=== PATIENT | male | born 1960 | race Caucasian/White ===

== ENCOUNTER 2017-12-11 21:36 | Emergency (ER) | payer BC ==
--- NOTE | 2017-12-11 21:58 | Emergency Department Record ---
History of Present Illness - General Chief Complaint: Abdominal Pain Stated Complaint: ABD PAIN Time Seen by Provider: 12/11/17 21:40 Source: Patient Mode of Arrival: Ambulatory Limitations: No limitations - History of Present Illness Initial Comments: 57 yo male presents to ED for evaluation of intermittent left sided flank pain for the past 2 days. Patient reports that his pain symptoms range from sever to very mild, denies dysuria or change in stools, denies nausea/vomiting, and denies recent fevers/chills/illness. Patient denies trauma to the area or injury. Patient reports taking ibuprofen for his pain symptoms which improves but then returns when the NSAID wears off. Patient denies previous surgery other than appendectomy. MD Complaint: Abdominal pain Onset/Timin -: Days(s) Location: LLQ Migration to: L Flank Severity: Moderate Quality: Sharp, Stabbing Consistency: Constant, Getting worse Improves With: Nothing Worsens With: Nothing - Related Data Home Medications Medication Instructions Recorded Confirmed Last Taken Atorvastatin Calcium [Atorvastatin 20 mg PO DAILY 12/11/17 12/11/17 Unknown Calcium] Allergies Allergy/AdvReac Type Severity Reaction Status Date / Time amoxicillin trihydrate Allergy Mild RASH Verified 09/11/15 10:24 [From Augmentin] potassium clavulanate Allergy Mild RASH Verified 09/11/15 10:24 [From Augmentin] Travel Screening - Travel/Exposure Within Last 30 Days Have you traveled within the last 30 days?: No Review of Systems Constitutional: Denies: Chills, Fever, Malaise, Night sweats Eyes: Denies: Eye discharge, Eye pain ENT: Denies: Congestion, Ear pain Respiratory: Denies: Cough, Dyspnea Cardiovascular: Denies: Chest pain, Dyspnea on exertion Endocrine: Denies: Fatigue, Heat or cold intolerance Gastrointestinal: Reports: Abdominal pain. Denies: Nausea, Vomiting Genitourinary: Denies: Incontinence, Retention Musculoskeletal: Denies: Arthralgia, Back pain, Gout, Joint swelling Skin: Denies: Bruising, Change in color Neurological: Denies: Abnormal gait, Confusion, Headache, Seizure Psychiatric: Denies: Anxiety Hematological/Lymphatic: Denies: Anemia, Blood Clots Past Medical History - SOCIAL HISTORY Smoking Status: Never smoker Alcohol Use: None Drug Use: None - RESPIRATORY Hx Respiratory Disorders: No - CARDIOVASCULAR Hx Cardio Disorders: Yes Hx Cardiac Cath: Yes (2011) Hx Hypertension: Yes - NEURO Hx Neuro Disorders: No - GI Hx GI Disorders: No - Hx Genitourinary Disorders: No - ENDOCRINE Hx Endocrine Disorders: No - MUSCULOSKELETAL Hx Musculoskeletal Disorders: No - PSYCH Hx Psych Problems: Yes Hx Anxiety: Yes - HEMATOLOGY/ONCOLOGY Hx Hematology/Oncology Disorders: No Family Medical History Any Significant Family History?: Yes Hx Heart Disease: Father, Grandparents Hx HTN: Father, Grandparents Physical Exam - General General Appearance: Alert, Oriented x3, Cooperative, No acute distress, Other ( rates his pain at 1/10 currently) Limitations: No limitations - Head Head exam: Atraumatic, Normocephalic, Normal inspection Head exam detail: negative: Abrasion, Contusion, Willingham's sign, General tenderness, Hematoma, Laceration - Eye Eye exam: Normal appearance. negative: Conjunctival injection, Periorbital swelling, Periorbital tenderness, Scleral icterus - ENT Ear exam: negative: Auricular hematoma, Auricular trauma Nasal Exam: negative: Active bleeding, Discharge, Dried blood, Foreign body Mouth exam: negative: Drooling, Laceration, Tongue elevation - Neck Neck exam: Normal inspection. negative: Meningismus, Tenderness - Respiratory Respiratory exam: Normal lung sounds bilaterally. negative: Rales, Respiratory distress, Rhonchi, Stridor - Cardiovascular Cardiovascular Exam: Regular rate, Normal rhythm, Normal heart sounds - GI/Abdominal GI/Abdominal exam: Soft. negative: Rebound, Rigid, Tenderness - Rectal Rectal exam: Deferred - exam: Deferred - Extremities Extremities exam: Normal inspection. negative: Pedal edema, Tenderness - Back Back exam: Denies: CVA tenderness (R), CVA tenderness (L) - Neurological Neurological exam: Alert, Normal gait, Oriented X3 - Psychiatric Psychiatric exam: Normal affect, Normal mood - Skin Skin exam: Normal color. negative: Abrasion Type of lesion: negative: abrasion Course Vital Signs 12/11/17 21:40 Temperature 98.1 F Pulse Rate [ 78 Pulse Ox Probe] Respiratory 28 H Rate Blood Pressure 145/85 [Left Arm] Pulse Ox 97 - Reevaluation(s) Reevaluation #1: 12/11/17 22:21 Labs reviewed, Creatinine 1.4 (previous 0.9-0.9), labs are otherwise grossly unremarkable for an acute process. UA reviewed: RBC: TNTC WBC: 0-2 Epi: None Bact: None 12/11/17 22:24 Reevaluation #2: 12/11/17 23:05 CT Abdomen and Pelvis: Mild fat stranding left kidney and ureter c/w recently passes stone Patient reassessed and reports that he has not felt this good in 2 days, symptoms appear c/w recently passed stone. Patient appears stable for discharge at this time. Medical Decision Making - Lab Data Result diagrams: 12/11/17 22:00 12/11/17 22:00 Disposition Disposition: Discharge Clinical Impression: Kidney stone on left side Disposition: Home, Self-Care Condition: (2) Stable Instructions: Kidney Stones (ED) Additional Instructions: Return to ED if your symptoms worsen or if you have any concerns. Follow-up with your family doctor in 3-5 days as directed. Forms: Patient Portal Access Time of Disposition: 23:08 Quality - Quality Measures Quality Measures: N/A - Blood Pressure Screening Does Patient Have Any of the Following: No Blood Pressure Classification: Pre-Hypertensive BP Reading Systolic Measurement: 145 Diastolic Measurement: 85 Screening for High Blood Pressure: < Pre-Hypertensive BP, F/U Documented > [ [id number]] Pre-Hypertensive Follow-up Interventions: Referral to alternative/primary care provider.
[2017-12-11 22:08] LABS: BASO % 0.1 % (0-6); EOS % 1.1 % (0-6); GRAN % 67.4 % (47-80); HEMATOCRIT 41.8 % (42.0-52.0); HEMOGLOBIN 14.8 gm/dl (14.0-18.0); LYMPH % 17.8 % (16-45); MEAN CELL VOLUME 83.8 fl (81-97); MEAN CORPUSCULAR HEMOGLOBIN 29.7 pg (27-33); MEAN CORPUSCULAR HGB CONC 35.4 g/dl (32-36); MEAN PLATELET VOLUME 10.1 fl (7.4-10.4); MONO % 13.6 % (0-9); PLATELET COUNT 184 K/uL (130-400); RED BLOOD COUNT 4.99 M/uL (4.40-5.70); RED CELL DISTRIBUTION WIDTH 13.3 % (11.5-14.5)
[2017-12-11 22:12] LABS: URINE APPEARANCE CLEAR; URINE BILIRUBIN NEGATIVE (NEGATIVE); URINE BLOOD LARGE (NEGATIVE); URINE COLOR YELLOW; URINE GLUCOSE (UA) NEGATIVE (NEGATIVE); URINE KETONE NEGATIVE (NEGATIVE); URINE LEUKOCYTE ESTERASE TRACE (NEGATIVE); URINE NITRITE NEGATIVE (NEGATIVE); URINE UROBILINOGEN 0.2 E.U./dL (0.20 - 1.00)
[2017-12-11 22:17] LABS: BILIRUBIN,TOTAL 0.6 mg/dL (0.2-1.0); CREATININE 1.4 mg/dL (0.7-1.2)
[2017-12-11 22:18] LABS: URINE BACTERIA NONE SEEN; URINE EPITHELIAL CELLS NONE SEEN (FEW); URINE WBC 0 - 2 (0-2/hpf)
[2017-12-11 22:18] LABS: TOTAL PROTEIN 7.2 g/dL (6.6-8.7)
[2017-12-11 22:22] LABS: ALB/GLOB RATIO 1.5 (1.1-1.8); ALBUMIN 4.3 g/dL (4.0-5.0)
--- NOTE | 2017-12-12 09:33 | CT SCAN REPORT ---
EXAM: CT SCAN OF THE ABDOMEN AND PELVIS WITHOUT CONTRAST HISTORY: SEVERE LEFT FLANK AND ABDOMINAL PAIN FOR THE PAST TWO DAYS. TECHNIQUE: Standard CT imaging of the abdomen and pelvis was performed without contrast. Comparison: 04/30/10. FINDINGS: There is mild dependent atelectasis at both lung bases. A 9 mm cyst is present within the right hepatic lobe. The gallbladder, biliary tree, pancreas, spleen, and adrenal glands are normal. There is mild left perinephric and periureteral fat stranding. There is no obstructing calculus. This pattern is nonspecific and may represent recent stone passage versus an ascending urinary tract infection. A 12 mm exophytic cyst is present off the posterior cortex of the left kidney. The right kidney and ureter are normal. The aorta is normal in caliber. There is no retroperitoneal lymphadenopathy. The stomach and epigastrium are normal. The large and small bowel loops are normal. There is no pneumoperitoneum or ascites. The urinary bladder is normal. The prostate gland is mildly enlarged. There is a tiny fat containing umbilical hernia. Degenerative changes are present within the spine. There are no acute osseous abnormalities. IMPRESSION: 1. MILD LEFT PERIURETERAL AND PERINEPHRIC FAT STRANDING WITH NO OBSTRUCTING CALCULUS. DIFFERENTIAL CONSIDERATIONS INCLUDE RECENT STONE PASSAGE VERSUS ASCENDING URINARY TRACT INFECTION. 2. SMALL LEFT RENAL AND HEPATIC CYSTS. 3. TINY FAT CONTAINING UMBILICAL HERNIA. 4. MILDLY ENLARGED PROSTATE GLAND. JOB NUMBER: [id number] [facility]
== END 2017-12-11 23:20 | disposition home or self-care (01) ==
LOC: ER 21:36
DX: N20.0 Calculus of kidney (principal); R11.0 Nausea; I10 Essential (primary) hypertension
CPT/HCPCS: 74176; 80053; 81001; 83690; 85025; 99283; 99284

== ENCOUNTER 2019-06-16 08:41 | Emergency (ER) | payer BC ==
[2019-06-16] MEDS ORDERED: ASPIRIN 325 MG TABLET PO ONE (08:58)
--- NOTE | 2019-06-16 09:00 | Emergency Department Record ---
History of Present Illness - General Chief Complaint: Arrythmia/Palpitations Stated Complaint: PALPITATIONS Time Seen by Provider: 06/16/19 08:57 Source: Patient, Family (spouse) - History of Present Illness Initial Comments: The patient states he has had 3 days of right sided facial and head pain around his right ear, right scalp and right neck. He noticed yesterday his lower jaw on both sides felt numb, "like he had been at the dentist." This morning he also noticed he had trouble eating his cereal due to his mouth leaking out the milk when he chewed. He also has had two days of intermittent rapid palpitations lasting a maximum of one minute and associated with lightheadedness and dizziness. He estimates he has had 5-10 episodes of these since yesterday. Upon questioning he admits also to mildly increased shortness of breath at rest or moving, "it feels like I can't catch my breath sometimes." He states he has a history of anxiety, and took an ativan, which did not help him. He currently only has the numb jaw symptom. PMH includes "unstable angina" manifesting as tightness across his chest" He sees Dr. Gonzalez at [facility]. He denies having cardiac RI's, stents or procedures. His last heart cath was over 5 years ago, and his last stress test over 2 years ago. 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 Risks: +htn, +chol. elevation, + FH (Dad RI in his 40's); negative for DM, or smoking. - Related Data Home Medications Medication Instructions Recorded Confirmed Last Taken Lorazepam [Ativan] 0.5 mg PO ASDIR 06/16/19 06/16/19 06/15/19 Allergies Allergy/AdvReac Type Severity Reaction Status Date / Time amoxicillin trihydrate Allergy Mild RASH Verified 06/16/19 08:48 [From Augmentin] potassium clavulanate Allergy Mild RASH Verified 06/16/19 08:48 [From Augmentin] Review of Systems Reviewed: No additional complaints except as noted below Constitutional: Reports: As per HPI. Denies: Chills, Fever, Malaise, Night sweats, Weakness, Weight change Eyes: Reports: As per HPI. Denies: Eye discharge, Eye pain, Photophobia, Vision change ENT: Reports: As per HPI. Denies: Congestion, Dental pain, Ear pain, Epistaxis, Hearing loss, Throat pain Respiratory: Reports: As per HPI. Denies: Cough, Dyspnea, Hemoptysis, Stridor, Wheezes Cardiovascular: Reports: As per HPI. Denies: Arrhythmia, Chest pain, Dyspnea on exertion, Edema, Murmurs, Orthopnea, Palpitations, Paroxysmal nocturnal dyspnea, Rheumatic Fever, Syncope Endocrine: Reports: As per HPI. Denies: Fatigue, Heat or cold intolerance, Polydipsia, Polyuria Gastrointestinal: Reports: As per HPI. Denies: Abdominal pain, Constipation, Diarrhea, Hematemesis, Hematochezia, Melena, Nausea, Vomiting Genitourinary: Reports: As per HPI. Denies: Dysuria, Frequency, Hematuria, Incontinence, Retention, Testicular pain, Testicular mass, Urgency Musculoskeletal: Reports: As per HPI. Denies: Arthralgia, Back pain, Gout, Joint swelling, Myalgia, Neck pain Skin: Reports: As per HPI. Denies: Bruising, Change in color, Change in hair/n ails, Lesions, Pruritus, Rash Neurological: Reports: As per HPI. Denies: Abnormal gait, Confusion, Headache, Numbness, Paresthesias, Seizure, Tingling, Tremors, Vertigo, Weakness Psychiatric: Reports: As per HPI. Denies: Anxiety, Auditory hallucinations, Depression, Homicidal thoughts, Suicidal thoughts, Visual hallucinations Hematological/Lymphatic: Reports: As per HPI. Denies: Anemia, Blood Clots, Easy bleeding, Easy bruising, Swollen glands Past Medical History - SOCIAL HISTORY Smoking Status: Never smoker Drug Use: None - RESPIRATORY Hx Respiratory Disorders: No - CARDIOVASCULAR Hx Cardio Disorders: Yes Hx Cardiac Cath: Yes (2011) Hx Hypertension: Yes - NEURO Hx Neuro Disorders: No - GI Hx GI Disorders: No - Hx Genitourinary Disorders: No - ENDOCRINE Hx Endocrine Disorders: No - MUSCULOSKELETAL Hx Musculoskeletal Disorders: No - PSYCH Hx Psych Problems: Yes Hx Anxiety: Yes - HEMATOLOGY/ONCOLOGY Hx Hematology/Oncology Disorders: No Family Medical History Any Significant Family History?: Yes Hx Heart Disease: Father, Grandparents Hx HTN: Father, Grandparents Physical Exam - General General Appearance: Alert, Oriented x3, Cooperative, No acute distress - Head Head exam: Normal inspection, Other (right sided facial droop including forehead) - Eye Eye exam: Normal appearance, PERRL, EOMI. negative: Conjunctival injection, Nystagmus, Scleral icterus Pupils: Normal accommodation - ENT ENT exam: Normal exam, Mucous membranes moist, Normal external ear exam, Normal orophraynx, TM's normal bilaterally Ear exam: Normal external inspection. negative: External canal tenderness Nasal Exam: Normal inspection. negative: Discharge, Sinus tenderness Mouth exam: Normal external inspection, Tongue normal Teeth exam: Normal inspection. negative: Dental caries Throat exam: Normal inspection. negative: Tonsillar erythema, Tonsillar exudate - Neck Neck exam: Normal inspection, Full ROM. negative: Lymphadenopathy, Meningismus, Tenderness - Respiratory Respiratory exam: Normal lung sounds bilaterally. negative: Accessory muscle use, Chest wall tenderness, Decreased breath sounds, Prolonged expiratory, Respiratory distress, Stridor, Wheezes - Cardiovascular Cardiovascular Exam: Regular rate, Normal rhythm, Normal heart sounds - GI/Abdominal GI/Abdominal exam: Soft, Normal bowel sounds. negative: Distended, Guarding, Rebound, Rigid, Tenderness - Rectal Rectal exam: Deferred - exam: Deferred - Extremities Extremities exam: Normal inspection, Full ROM, Normal capillary refill. negative: Calf tenderness, Joint swelling, Pedal edema, Tenderness - Back Back exam: Reports: Normal inspection, Full ROM. Denies: CVA tenderness (R), CVA tenderness (L), Muscle spasm, Rash noted, Tenderness - Neurological Neurological exam: Alert, Normal gait, Oriented X3, Reflexes normal, Other (right sided facial doop including forehead). negative: CN II-XII intact, Motor sensory deficit - Psychiatric Psychiatric exam: Normal affect, Normal mood - Skin Skin exam: Dry, Intact, Normal color, Warm Course - Reevaluation(s) Reevaluation #1: Patient informed of his elevated D dimer and pending CTA 06/16/19 09:44 Reevaluation #2: Returned from CT scan, no new symptoms. Awaiting CT results. 06/16/19 10:18 Reevaluation #3: Patient and informed that he should use lacrilube eye drops and patch his right eye at bedtime to prevent corneal injury. 06/16/19 11:20 Reevaluation #4: [facility] who accepts patient in transfer for direct admit with cardiology consult in a.m. Patient and spouse are in agreement with transfer 06/16/19 11:26 DW 06/16/19 11:29 Medical Decision Making - Management Options MDM Management: Additional Work-up Planned (e.g. ADM/Transfer/OP Study) - Data Complexity MDM Data: Labs Ordered and/or Reviewed, X-Ray Ordered and/or Reviewed (Noncontrast Head CT: Neg; CTA chest: Negative for PE or oother abnormality), EKG Ordered and/or Reviewed (NSR at 96, nonspecific T waves, no acute changes compared with 09-11-15) - Lab Data Result diagrams: 06/16/19 09:00 - EKG Data EKG: No Acute Changes Disposition Disposition: Transfer Clinical Impression: Intermittent palpitations, Lightheadedness, Right facial numbness, Neck pain on right side, Numbness of left jaw, Numbness of right jaw Disposition: Acute Care Hospital Transfer Return To Work/School Note Provided: No Decision to Admit: Admit from ER Transfer To: [facility] Reason For Transfer: Cardiology Accepting Physician: Time Discussed w/Accepting Physician: 11:28 Condition: (2) Stable Quality - Quality Measures Quality Measures: N/A - Blood Pressure Screening Does Patient Have Any of the Following: No Blood Pressure Classification: Hypertensive Reading Systolic Measurement: 167 Diastolic Measurement: 93 Screening for High Blood Pressure: Patient Exclusion, Hx of HTN [G9744]
[2019-06-16 09:10] LABS: ABSOLUTE NEUTROPHIL COUNT 2.72; BASO % 0.5 % (0-6); EOS % 2.3 % (0-6); GRAN % 62.4 % (47-80); HEMATOCRIT 46.3 % (42.0-52.0); HEMOGLOBIN 16.1 gm/dl (14.0-18.0); LYMPH % 25.1 % (16-45); MEAN CELL VOLUME 84.8 fl (81-97); MEAN CORPUSCULAR HEMOGLOBIN 29.5 pg (27-33); MEAN CORPUSCULAR HGB CONC 34.8 g/dl (32-36); MEAN PLATELET VOLUME 10.1 fl (7.4-10.4); MONO % 9.7 % (0-9); PLATELET COUNT 177 K/uL (130-400); RED BLOOD COUNT 5.46 M/uL (4.40-5.70); RED CELL DISTRIBUTION WIDTH 13.5 % (11.5-14.5); WHITE BLOOD COUNT W/O DIFF 4.4 K/uL (4.2-12.2)
[2019-06-16 09:24] LABS: PARTIAL THROMBOPLASTIN TIME 26.1 SECONDS (24.5-39.1)
[2019-06-16 09:27] LABS: NTpro B-NATRIURETIC PEPTIDE 16.53 pg/mL (<125)
[2019-06-16 09:34] LABS: THYROID STIMULATING HORMONE 2.42 uIU/mL (0.270-4.20)
[2019-06-16] MEDS ORDERED: PREDNISONE 20 MG TAB PO ONE (11:17)
--- NOTE | 2019-06-18 10:56 | CT SCAN REPORT ---
EXAM: CT OF THE HEAD WITHOUT CONTRAST HISTORY: LEFT SIDED HEAD PAIN WITH RIGHT FACIAL DROOP. TECHNIQUE: Standard CT imaging of the head without intravenous contrast was obtained. Comparison: None. Hand dominance: Right. FINDINGS: The ventricles, sulci, and basal cisterns are normal. No intracranial hemorrhage or extraaxial fluid collection is identified. No significant mass effect or midline shift. The cui white matter differentiation is maintained. The paranasal sinuses and mastoid air cells are clear. IMPRESSION: NEGATIVE NONCONTRAST HEAD CT. JOB NUMBER: [id number] [facility]
--- NOTE | 2019-06-18 11:03 | CT ANGIOGRAM REPORT ---
EXAM: CTA OF THE CHEST WITH CONTRAST HISTORY: ELEVATED D-DIMER. TECHNIQUE: Standard CT angiography of the chest was obtained following intravenous administration. Coronal and sagittal maximum intensity projection images are created on a dependent workstation. Comparison: None. FINDINGS: The heart is unremarkable. The aorta is normal in caliber without evidence for dissection. Evaluation for pulmonary embolus is suboptimal due to respiratory/cardiac motion which obscures some of the segmental and subsegmental pulmonary arteries. No filling defects are identified within the pulmonary arteries. No mediastinal or hilar adenopathy. A few subcentimeter hypodense lesions in the liver are too small to characterize, but likely cysts. No destructive osseous lesion is identified. Scanning of the lungs was performed in expiration. Scattered ground opacities likely from atelectasis. Otherwise, no consolidation or significant interstitial thickening. There is no pleural effusion or pneumothorax. IMPRESSION: NO EVIDENCE FOR PULMONARY EMBOLUS TO THE LEVEL OF THE SEGMENTAL PULMONARY ARTERIES. NO ACUTE INTRATHORACIC PROCESS IS IDENTIFIED. JOB NUMBER: [id number] [facility]
== END 2019-06-16 12:09 | disposition short-term general hospital (02) ==
LOC: ER 08:41
DX: R00.2 Palpitations (principal); R42 Dizziness and giddiness; R20.0 Anesthesia of skin; M54.2 Cervicalgia; R06.02 Shortness of breath; R07.89 Other chest pain; R79.89 Other specified abnormal findings of blood chemistry; I10 Essential (primary) hypertension
CPT/HCPCS: 70450; 71275; 83880; 84443; 84484; 85025; 85379; 85610; 85730; 93005; 93010; 99285; J7512